=== PATIENT | female | born 1945 | race Caucasian/White ===

== ENCOUNTER → 2018-09-29 15:05 | Outpatient (CLI) | payer OTHER, MEDICARE, SELFPAY ==
--- NOTE | 2018-09-29 | DI.RAD.S_ITS ---
PROCEDURE: XR CHEST 2V INDICATIONS: COUGH TECHNIQUE: 2 views of the chest were acquired. COMPARISON: None. FINDINGS: Surgical changes and devices: None. Lungs and pleura: No pleural effusions or pneumothorax. Hyperinflated lungs. No acute consolidation. Scattered subsegmental atelectasis and/or scarring Mediastinum: Mediastinal contours are normal. Heart size is normal. Bones and chest wall: No suspicious bony abnormalities. Soft tissues appear unremarkable. IMPRESSION: Hyperinflated lungs in keeping with chronic obstructive physiology. No acute consolidation Dictated by: Barron Morejon M.D. on 09/29/2018 at 16:36 Approved by: Barron Morejon M.D. on 09/29/2018 at 16:37
== END ==
PROVIDERS: PCP Family Medicine; Visit Provider Family Medicine
DX: R05 Cough (principal)
CPT/HCPCS: 71046

== ENCOUNTER → 2019-04-11 11:44 | Outpatient (CLI) | payer OTHER, MEDICARE, SELFPAY ==
--- NOTE | 2019-04-11 | DI.MG.S_ITS ---
BILATERAL DIGITAL SCREENING MAMMOGRAM 3D/2D WITH CAD: 04/18/2019 CLINICAL: Routine screening. Family history of breast cancer. Comparison is made to exams dated: 04/11/2019 mammogram, 04/13/2017 mammogram, and 02/08/2016 mammogram - [facility]. There are scattered fibroglandular elements in both breasts. Current study was also evaluated with a Computer Aided Detection (CAD) system. No significant masses, calcifications, or other findings are seen in either breast. There has been no significant interval change. IMPRESSION: NEGATIVE There is no mammographic evidence of malignancy. A 1 year screening mammogram is recommended. This exam was interpreted at Station ID: [id number]. NOTE: For mammograms, a report in lay terms will be sent to the patient. Approximately 15% of breast malignancies will not be visualized mammographically. In the management of a palpable breast mass, a negative mammogram must not discourage biopsy of a clinically suspicious lesion. Electronically Signed By: Ajit east/jesus:04/18/2019 10:47:44 letter sent: Normal Exam ACR BI-RADS Category 1: Negative 3341F
== END ==
PROVIDERS: PCP Family Medicine; Visit Provider Family Medicine
DX: Z12.31 Encounter for screening mammogram for malignant neoplasm of breast (principal)
CPT/HCPCS: 77063; 77067

== ENCOUNTER → 2020-05-14 08:20 | Outpatient (CLI) | payer OTHER, MEDICARE, SELFPAY ==
--- NOTE | 2020-05-14 08:38 | DI.MG.S_ITS ---
Patient Name: DEVON GUIDRY date: 1945 Sex: F Attending Physician: Nick Indications: Date: 05/14/2020 08:31 At the request of: JANEY LEMA Procedure: MM screening mammo BI BILATERAL DIGITAL SCREENING MAMMOGRAM 3D/2D WITH CAD: 05/14/2020 CLINICAL: Routine screening. Family history of breast cancer. Comparison is made to exams dated: 04/11/2019 mammogram, 04/13/2017 mammogram, 09/25/2009 mammogram, 01/29/2012 mammogram, and 11/08/2013 mammogram - [facility]. There are scattered fibroglandular elements in both breasts. Current study was also evaluated with a Computer Aided Detection (CAD) system. No significant masses, calcifications, or other findings are seen in either breast. There has been no significant interval change. IMPRESSION: NEGATIVE There is no mammographic evidence of malignancy. A 1 year screening mammogram is recommended. This exam was interpreted at Station ID: [id number]. NOTE: For mammograms, a report in lay terms will be sent to the patient. Approximately 15% of breast malignancies will not be visualized mammographically. In the management of a palpable breast mass, a negative mammogram must not discourage biopsy of a clinically suspicious lesion. Electronically Signed By: Ajit east/jesus:05/14/2020 09:04:41 letter sent: Normal Exam ACR BI-RADS Category 1: Negative 3341F
== END ==
PROVIDERS: PCP Family Medicine; Referring Provider Family Medicine; Visit Provider Family Medicine
DX: Z12.31 Encounter for screening mammogram for malignant neoplasm of breast (principal); Z80.3 Family history of malignant neoplasm of breast
CPT/HCPCS: 77063; 77067

== ENCOUNTER → 2020-12-13 13:04 | Outpatient (CLI) | payer OTHER, MEDICARE, SELFPAY ==
[2020-12-13 14:05] LABS: COVID19 -Nasal RAPID Negative (Negative)
== END ==
PROVIDERS: PCP Family Medicine; Referring Provider Internal Medicine; Visit Provider Internal Medicine
DX: Z20.822 Contact with and (suspected) exposure to COVID-19 (principal)
CPT/HCPCS: 87635; C9803

== ENCOUNTER → 2020-12-14 12:54 | Outpatient (CLI) | payer OTHER, MEDICARE, SELFPAY ==
--- NOTE | 2020-12-19 09:37 | PM.PFT.1 ---
Pulmonary Function Test Referral & Results Date Patient Seen: 12/14/20 Requesting provider: Gatito Calderón Results: The spirometry demonstrates an FVC of 1.71 L which is 52% of predicted. The FEV1 was measured at 0.75 L which is 30% of predicted. The FEV1/FVC ratio was 44 which is 58% of predicted. Following the administration of bronchodilator there was a 26% improvement in FEV1 and then 84% improvement in FEF 25-75%. Lung volumes show an SVC of 1.82 L which is 58% of predicted. The diffusing capacity was measured at 15.31 which is 54% of predicted. No hemoglobin value was provided, so no correction for potential anemia could be made, if appropriate. The maximum voluntary ventilation was reduced Interpretation: This study demonstrates severe obstructive lung disease with an FEV1 of less than 1 L as above. There is however evidence of significant benefit following bronchodilator based on improvements in both FEV1 and FEF 25-75% There is also moderate restrictive lung disease present based on reduction SVC There is also moderately severe reduction in diffusing capacity as above. Altogether this is consistent with a diagnosis of moderate/severe COPD
== END ==
PROVIDERS: PCP Family Medicine; Referring Provider Family Medicine; Visit Provider Family Medicine
DX: J44.9 Chronic obstructive pulmonary disease, unspecified (principal); Z87.891 Personal history of nicotine dependence
CPT/HCPCS: 94060; 94726; 94729

== ENCOUNTER → 2021-01-14 08:06 | Outpatient (CLI) | payer OTHER, MEDICARE, SELFPAY ==
--- NOTE | 2021-01-14 | DI.US.S_ITS ---
PROCEDURE: US CAROTID DOPPLER BI INDICATIONS: OCCLUSION/STENOSIS OF CAROTID ARTERY TECHNIQUE: Color and pulse Doppler interrogation was performed of both carotid systems, with image documentation and velocity measurements. COMPARISON: None. FINDINGS: Stenosis calculations are based on SRU (Society of Radiologists in Ultrasound) criteria. Right side: Brachial blood pressure: 159/80 mm Hg. Common carotid artery peak systolic velocity: 70 cm/sec. Internal carotid artery peak systolic velocity: 117 cm/sec. Internal carotid artery end diastolic velocity: 17 cm/sec. External carotid artery peak systolic velocity: 99 cm/sec. ICA/CCA peak systolic ratio: 1.66 . Jacobo scale imaging description: Moderate shadowing calcific plaque in the distal common carotid, carotid bulb, and proximal internal carotid artery. Waveforms demonstrate mild spectral broadening at the area of ICA stenosis. Percent internal carotid artery stenosis: Less than 50% . Vertebral artery: Flow direction is antegrade. Left side: Brachial blood pressure: 154/77 mm Hg. Common carotid artery peak systolic velocity: 57 cm/sec. Internal carotid artery peak systolic velocity: 70 cm/sec. Internal carotid artery end diastolic velocity: 18 cm/sec. External carotid artery peak systolic velocity: 116 cm/sec. ICA/CCA peak systolic ratio: 1.24 . Jacobo scale imaging description: Irregular noncalcified soft plaque at the left proximal ICA causing mild subjective luminal stenosis. There is spectral broadening without significant velocity elevation. Percent internal carotid artery stenosis: Less than 50 . Vertebral artery: Flow direction is antegrade. IMPRESSION: 1. Bilateral, less than 50% proximal ICA stenoses. 2. Calcified plaque in the right carotid system and noncalcified irregular soft plaque in the left carotid system. 3. Antegrade vertebral artery flow bilaterally. Dictated by: Heather Allred M.D. on 01/14/2021 at 9:32 Approved by: Heather Allred M.D. on 01/14/2021 at 9:40
== END ==
PROVIDERS: PCP Family Medicine; Referring Provider Family Medicine; Visit Provider Family Medicine
DX: I65.23 Occlusion and stenosis of bilateral carotid arteries (principal)
CPT/HCPCS: 93880

== ENCOUNTER → 2021-08-12 16:00 | Outpatient (CLI) | payer OTHER, MEDICARE, SELFPAY ==
--- NOTE | 2021-08-12 16:06 | DI.RAD.S_ITS ---
PROCEDURE: XR ELBOW RT MIN 3V INDICATIONS: INJURY/PAIN TECHNIQUE: 3 views of the elbow were acquired. COMPARISON: None. FINDINGS: Bones: No fractures or dislocations. No suspicious bony lesions. Soft tissues: Small elbow joint effusion. No suspicious soft tissue calcifications. IMPRESSION: Small joint effusion and occult elbow fracture cannot be excluded. Recommend clinical correlation and if indicated short-term follow-up plain film in 10-14 days could be performed. Dictated by: Priyank Araya [facility] Interpreted: Lokesh Noel MD on 08/12/2021 at 16:27 Transcribed by: ISREAL on 08/12/2021 at 16:28 Approved by: Lokesh Noel M.D. on 08/14/2021 at 16:03
--- NOTE | 2021-08-12 16:06 | DI.RAD.S_ITS ---
PROCEDURE: XR WRIST RT MIN 3V INDICATIONS: INJURY/PAIN TECHNIQUE: 4 views of the wrist were acquired. COMPARISON: None. FINDINGS: Bones: Minimally displaced and impacted distal radial metaphyseal fracture. Bony fragment seen along the dorsal aspect of the mid carpus suspicious for triquetral fracture. Background osteoarthritic changes throughout the hand. Scaphoid view: Intact scaphoid. Soft tissues: No suspicious soft tissue calcifications. IMPRESSION: 1. Distal radial metaphyseal and probable triquetral fracture. Dictated by: Priyank Araya [facility] Interpreted: Lokesh Noel MD on 08/12/2021 at 16:26 Transcribed by: ISREAL on 08/12/2021 at 16:27 Approved by: Lokesh Noel M.D. on 08/14/2021 at 16:02
--- NOTE | 2021-08-12 16:06 | DI.RAD.S_ITS ---
PROCEDURE: XR HAND RT MIN 3V INDICATIONS: INJURY/PAIN TECHNIQUE: 3 views of the hand(s) acquired. COMPARISON: None. FINDINGS: Bones: Mildly displaced and impacted distal radial metaphyseal fracture. On the lateral view, there is a bony fragment projected over the dorsal aspect of the mid carpus suspicious for triquetral fracture. Background osteoarthritic changes within the hand. Soft tissues: No suspicious soft tissue calcifications. IMPRESSION: 1. Distal radial metaphyseal and probable triquetral fractures. Dictated by: Priyank Araya [facility] Interpreted: Lokesh Noel MD on 08/12/2021 at 16:25 Transcribed by: ISREAL on 08/12/2021 at 16:26 Approved by: Lokesh Noel M.D. on 08/14/2021 at 16:02
--- NOTE | 2021-08-12 16:06 | DI.RAD.S_ITS ---
PROCEDURE: XR FOREARM RT 2V INDICATIONS: INJURY/PAIN TECHNIQUE: 2 views of the forearm were acquired. COMPARISON: None. FINDINGS: Bones: Minimally displaced and mildly impacted distal radial metaphyseal fracture. On the lateral view there also is a bony fragment visualized over the dorsal part of the mid carpus which could represent a triquetral fracture. Soft tissues: No suspicious soft tissue calcifications or masses. IMPRESSION: 1. Distal radial metaphyseal fracture. 2. Possible triquetral fracture. Dictated by: Priyank Araya [facility] Interpreted: Lokesh Noel MD on 08/12/2021 at 16:23 Transcribed by: ISREAL on 08/12/2021 at 16:24 Approved by: Lokesh Noel M.D. on 08/14/2021 at 16:03
== END ==
PROVIDERS: PCP Family Medicine; Referring Provider Family Medicine; Visit Provider Family Medicine
DX: M79.601 Pain in right arm (principal); S59.201A Unspecified physeal fracture of lower end of radius, right arm, initial encounter for closed fracture; M25.421 Effusion, right elbow; X58.XXXA Exposure to other specified factors, initial encounter
CPT/HCPCS: 73080; 73090; 73110; 73130

== ENCOUNTER → 2022-07-14 10:38 | Outpatient (CLI) | payer OTHER, MEDICARE, SELFPAY | LOC: RAD 10:42 | PROVIDERS: PCP Family Medicine; Referring Provider Family Medicine; Visit Provider Family Medicine | DX: M85.851 Other specified disorders of bone density and structure, right thigh (principal); Z78.0 Asymptomatic menopausal state; Z92.241 Personal history of systemic steroid therapy | CPT/HCPCS: 77080 ==

== ENCOUNTER → 2022-07-15 15:03 | Outpatient (CLI) | payer OTHER, MEDICARE, SELFPAY ==
--- NOTE | 2022-07-15 | DI.MG.S_ITS ---
BILATERAL DIGITAL SCREENING MAMMOGRAM 3D/2D WITH CAD: 07/15/2022 CLINICAL: Routine screening. Comparison is made to exams dated: 05/14/2020 mammogram, 04/11/2019 mammogram, and 04/11/2019 mammogram - [facility]. There are scattered areas of fibroglandular density in both breasts (category b / 25%-50% glandular tissue). Current study was also evaluated with a Computer Aided Detection (CAD) system. There are benign vascular calcifications in the left breast. No significant masses, calcifications, or other findings are seen in either breast. There has been no significant interval change. IMPRESSION: BENIGN There is no mammographic evidence of malignancy. A 1 year screening mammogram is recommended. Based on the Tyrer Cuzick model (a risk assessment model) the patient's lifetime risk is 3.3% and her 10 year risk is 2.9%. According to the ACR, ACS, and NCCN guidelines, an annual breast MRI exam along with mammogram is recommended if the patient's lifetime risk is 20% or greater. This exam was interpreted at Station ID: [id number]. NOTE: For mammograms, a report in lay terms will be sent to the patient. Approximately 15% of breast malignancies will not be visualized mammographically. In the management of a palpable breast mass, a negative mammogram must not discourage biopsy of a clinically suspicious lesion. Electronically Signed By: Maribel whalen/[email or web address]:07/16/2022 09:47:46 letter sent: Normal Exam ACR BI-RADS Category 2: Benign Finding(s) 3342F
== END ==
PROVIDERS: PCP Family Medicine; Referring Provider Family Medicine; Visit Provider Family Medicine
DX: Z12.31 Encounter for screening mammogram for malignant neoplasm of breast (principal)
CPT/HCPCS: 77063; 77067